=== PATIENT | female | born 1985 | race Caucasian/White ===

== ENCOUNTER 2018-03-01 09:22 | Day surgery (SDC) | payer OTHER ==
[2018-03-01 10:03] VITALS: BMI 26.4
--- NOTE | 2018-03-01 10:12 | HP ---
[facility]ellite [facility] [place] - Chief Complaint Chief Complaint: left patella fx - Past Medical History Allergies/Adverse Reactions: Allergies Allergy/AdvReac Type Severity Reaction Status Date / Time No Known Drug Allergies Allergy Verified 12/11/12 09:02 ...LMP: 02/22/18 - Current Medications Current Medications: Home Medications Medication Instructions Recorded Oxycodone HCl/Acetaminophen 1 - 2 tab PO Q6H #30 tab MDD 6 03/01/18 [Percocet 5-325 mg Tablet] Satellite Physical Exam - Physical Examination Vital Signs: Vital Signs Period Temp Pulse Resp BP Sys/Tyson Pulse Ox Last 24 Hr 98.1 F-98.1 F 77-77 20-20 108-108/71-71 100 General Appearance: Well Nourished, Well Developed, Alert & Oriented x3 ENT: Clear Lung: Normal air movement Heart: Regular rate & rhythm Extremities: Other (left knee - + swelling, + ttp, decr rom, nvi xrays show displaced patella fx) Neurological: Intact, Alert, Oriented Satellite Impression/Plan - Impression/Plan Impression: left patella fx Operative Procedure: left patella orif Date to be Performed: 03/01/18
[2018-03-01] MEDS ORDERED: BUPIVACAINE HCL/PF 0.5% (5MG/ML) 10 ML VIAL ONE (13:01)
[2018-03-01] MEDS ORDERED: DEXAMETHASONE SOD PHOSPHATE/PF 10 MG/ML SDV ONE (13:01)
[2018-03-01] MEDS ORDERED: MIDAZOLAM HCL 2 MG/2 ML SINGLE DOSE VIAL ONE ×3 (13:03→13:51)
[2018-03-01] MEDS ORDERED: ceFAZolin SODIUM 1 GM VIAL IVPB ONE (14:44)
[2018-03-01] MEDS ORDERED: ceFAZolin SODIUM 1 GM VIAL ONE (14:44)
--- NOTE | 2018-03-01 15:22 | OP ---
Operative Note - Note: Operative Date: 03/01/18 ([facility]) Pre-Operative Diagnosis: left patella fx Operation: left patella orif Post-Operative Diagnosis: Same as Pre-op Surgeon: Quan Plummer Forms Examiner: Nghia Fan Anesthesiologist/FILBERT GROWER: Arthur Lynn Anesthesia: Spinal, Local Estimated Blood Loss (mls): 50 Operative Report Dictated: Yes
[2018-03-01] MEDS ORDERED: ONDANSETRON 4 MG/2 ML VIAL IVPUSH PRN (15:50)
[2018-03-01] MEDS ORDERED: oxyCODONE HCL 5 MG TABLET PO PRN (15:50)
[2018-03-01] MEDS ORDERED: LACTATED RINGERS SOLUTION 1,000 ML IV SCH (16:00)
[2018-03-01 17:16] VITALS: BP 120/76; PULSE 65; TEMP 98
--- NOTE | 2018-03-02 12:12 | OP ---
DATE OF OPERATION: 03/01/2018 PREOPERATIVE DIAGNOSIS: Displaced left patellar fracture. POSTOPERATIVE DIAGNOSIS: Displaced left patellar fracture. PROCEDURE: Open reduction and internal fixation, left patella. SURGICAL ATTENDING: Quan Plummer MD DIRECT SUPPORT PROFESSIONAL CAREGIVER: YING Lopez ANESTHESIA: Regional and spinal. CLOSURE: SutureTape of the tendon, No. 1 Vicryl for retinaculum, 2-0 Vicryl subcutaneous and 3-0 Monocryl subcuticular with skin glue for skin. ESTIMATED BLOOD LOSS: Less than 50 mL. COMPLICATIONS: None. CONDITION: To recovery in stable condition. DESCRIPTION OF OPERATIVE PROCEDURE: Patient taken to the operating room on March 01, 2018. Spinal and regional anesthesia was administered by the anesthesiologist. IV Kefzol was administered prophylactically prior to the case. The left lower extremity was prepped and draped in the usual sterile fashion. An 8- to 10-cm longitudinal incision centered over the patella was incised. Hemostasis was achieved with Bovie cautery. Subcutaneous dissection was carried down to the level of the extensor mechanism. A large amount of hematoma was evacuated from the knee and the fracture site. Fracture was found to be a comminuted inferior pole of the patella fracture with tearing of the retinaculum both medial and laterally. Curets and irrigation were used to clean up the fracture site. Fracture was found to be almost completely extraarticular. SutureTape from [employer] was weaved up and down the sides of the tendon x2. Two parallel drill holes were drilled in the patella from inferior exiting superiorly. This was drilled with a Beath pin. Two limbs were pulled through the more medial tunnel and 2 limbs through the more lateral tunnel exiting the superior pole of the patella. One limb of each was passed in the opposite direction in order to have the same suture being tied on the same side of the patella. With the knee in extension both sutures were snugly tied to the superior pole of the patella reducing the patellar tendon to the inferior pole of the patella.The retinaculum was then repaired both medial and laterally using No. 1 Vicryl interrupted suture. Post fixation the knee was taken through a range of motion and found to have excellent stability of the repair. Passively able to move it to almost 90 degrees before tension grew at the site of the repair. Excellent repair was visualized. The incision was irrigated with copious amounts of irrigation. Subcutaneous was closed with 2-0 Vicryl and 3-0 Monocryl subcuticular with skin glue for the skin. A sterile pressure dressing followed by a knee immobilizer was applied. Patient awakened from anesthesia and transferred to recovery in stable condition. No complications. Estimated blood loss less than 100 mL. Tete [id number]
== END 2018-03-01 19:25 | disposition home or self-care (01) ==
LOC: JASU-SURG 09:22
PROVIDERS: ATTEND Orthopaedic Surgery
PROC: 0QSF04Z Reposition Left Patella with Internal Fixation Device, Open Approach (ICD-10-PCS; principal; 2018-03-01 11:30)
DX: S82.002A Unspecified fracture of left patella, initial encounter for closed fracture (principal); X58.XXXA Exposure to other specified factors, initial encounter; Y93.9 Activity, unspecified; Y92.9 Unspecified place or not applicable; Y99.9 Unspecified external cause status
CPT/HCPCS: 84703; 94760; 97116-GP